=== PATIENT | female | born 1975 | race Caucasian/White ===

== ENCOUNTER → 2017-04-09 | Outpatient (CLI) | payer OTHER ==
[~2017-04-09] MED LIST: CELEXA20 MG PO; LINZESS145 MCG PO; SKELAXIN; TRAMADOL HCL50 M1; XANAX0.5 M1 PO
--- NOTE | ~2017-04-09 | MR17 ---
[facility] A Service of [facility] RADIOLOGY TEXT RESULTS PATIENT: JABARI BELLO LOCATION: [facility] : 77 UNIT #: [id number] AGE: [address]: JULISSA JARVIS MD SEX: F ORDER DR: [id number] [address] [address] [id number] O MR#: [id number] Acc #: [id number] NAME: JABARI BELLO : 1975 SEX: F STUDY DATE/TIME: 04/09/2017 14:36 UNIT: [facility] ROOM: STUDY DESCRIPTION: MR Brain WWo Contrast Attending Physician: Julissa Jarvis M.D. Referring Physician: Julissa Jarvis M.D. Ordering Physician: Julissa Jarvis M.D. Primary Care Physician: Francisco Gill M.D. MRI CENTER REPORT This report is preliminary unless electronic signature is present. EXAM MRI of the brain with and without contrast dated 04/09/[address] head without contrast dated 12/23/2015, MRI brain with and without contrast dated 10/10/2014. HISTORY Migraines less than 2 years ago. Increasing headaches, more severe and more frequent in the last 2 years. FINDINGS Multisequence multiplanar imaging of the brain was obtained with and without contrast. 20 mL of MultiHance was administered intravenously. No acute stroke, space-occupying intracranial mass, mass effect, midline shift or hydrocephalus. Redemonstrated is previously noted increased nonenhancing T2 signal in the medial aspect of the left frontoparietal cortex, posterior to the posterior body of the corpus callosum, close to the splenium. Stable. It is also noted in the CT head from 2009. Vascular flow voids of the major cerebral arteries and dural venous sinuses are not completely occluded in these thicker slices. S-shaped nasal septal deviation is noted with minimal ethmoid and right maxillary sinus mucosal thickening. Imaged orbits and the ocular structures and mastoids are unremarkable. Postcontrast sequences do not demonstrate enhancing lesions. IMPRESSION 1. No demonstrable acute intracranial abnormality. 2. Known gliosis and encephalomalacic change along the medial aspect of the left frontoparietal lobe, abutting the falx cerebri is again noted. It is noted immediately posterior to the posterior body of the corpus callosum, close to the splenium. 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 [facility] A Service of [facility] RADIOLOGY TEXT RESULTS PATIENT: JABARI BELLO LOCATION: [facility] : 77 UNIT #: [id number] AGE: [address]: JULISSA JARVIS MD SEX: F ORDER DR: Dictated by... Luisana Paniagua M.D. THIS IS AN ELECTRONICALLY VERIFIED REPORT Luisana Paniagua M.D. at 04/10/2017 1:14 PM CPR/jw TD: 04/10/2017 10:28 JOB #: [id number] MRI CENTER REPORT Page 1 of 1
== END | disposition home or self-care (01) ==
LOC: SMRI 04-07 10:15
DX: G43.711 Chronic migraine without aura, intractable, with status migrainosus (principal); G93.89 Other specified disorders of brain; R94.02 Abnormal brain scan
CPT/HCPCS: 70553; A9581